=== PATIENT | female | born 1950 | race Caucasian/White ===

== ENCOUNTER 2018-02-13 14:44 | Inpatient (IN) | payer MEDICARE, OTHER ==
[2018-02-13] MEDS ORDERED: NS 0.9% 1000 ML* 1,000 ML IV ONE (14:56)
--- NOTE | 2018-02-13 15:02 | ED ---
Neurological HPI - HPI Summary HPI Summary: A 67 y/o F presents to ED by car with L-sided facial droop onset 1405 which was witnessed by her boyfriend. Last known well was approx 1300 when she went upstairs to take a nap. Associated sx: L-sided tingling and numbness on LUE and LLE, slurred speech. At bedside, boyfriend says her smile appears different. Pt notes having trouble with BP control. She was at baseline this AM. Pt is not on blood thinners and does not take daily aspirin. Pt has no prior hx of CVA. Past visits to [facility] [place] show melena, gastric ulcer. Daily medications include: Valsartan/ HCTZ 160/12.5; Simvastatin 40 mg; Synthroid 50 mcg. Cymbalta. Pt is R-hand dominant. PMHx incluides ulcer, diverticulitis, thyroid issue. ED provider at bedside at 1452. Dr. Shore, neuro, at bedside at 1503. He was made aware of jo quintanilla via phone while pt in CT. Pt taken immediately to CT and jo quintanilla called after initial assessment as pt brought into the room from triage. Vital signs while in room: HR 77 bpm, BP 170/76. Home Medications Medication Instructions Recorded Confirmed Type DULoxetine DR ARANA* [Cymbalta CAP*] 60 mg PO DAILY 02/13/18 02/13/18 History Ibandronate TAB(NF) [Boniva(NF)] 150 mg PO MONTHLY 02/13/18 02/13/18 History Levothyroxine TAB* [Synthroid TAB*] 50 mcg PO DAILY 02/13/18 02/13/18 History Pantoprazole TAB (NF) [Protonix 40 mg PO DAILY 02/13/18 02/13/18 History TAB (NF)] Ranitidine TAB (NF) [Zantac TAB 150 mg PO DAILY 02/13/18 02/13/18 History (NF)] Simvastatin TAB(NF) [Zocor(NF)] 40 mg PO DAILY 02/13/18 02/13/18 History Valsartan/HCTZ 160/12.5(NF) 1 tab PO DAILY 02/13/18 02/13/18 History [Diovan HCT 160/12.5 (NF)] Zolpidem TAB* [Ambien TAB*] 10 mg PO BEDTIME PRN 02/13/18 02/13/18 History - History of Current Complaint Chief Complaint: EDNeurologicalDeficit Stated Complaint: LT SIDE NUMBNESS Time Seen by Provider: 02/13/18 14:56 Hx Obtained From: Patient, Family/Extension Course Counselor Onset/Duration: Sudden Onset, Started hours ago - 1405, Still Present Timing: Constant Onset Severity: Mild Current Severity: Mild Number of Seizures: 0 Pain Intensity: 0 Pain Scale Used: 0-10 Numeric Character: Other: - L-sided facial droop Aggravating: Nothing Alleviating: Nothing Associated Signs and Symptoms: Positive: Impaired Speech - slurring, Numbness - and tingling to LUE and LLE TPA Considered: Yes - Allergy/Home Medications Allergies/Adverse Reactions: Allergies Allergy/AdvReac Type Severity Reaction Status Date / Time No Known Allergies Allergy Verified 06/24/14 13:20 Home Medications: Home Medications DULoxetine DR CAP* [Cymbalta CAP*] 60 mg PO DAILY 02/13/18 [History Confirmed ] Ibandronate TAB(NF) [Boniva(NF)] 150 mg PO MONTHLY 02/13/18 [History Confirmed 02/13/18] Levothyroxine TAB* [Synthroid TAB*] 50 mcg PO DAILY 02/13/18 [History Confirmed 02/13/18] Pantoprazole TAB (NF) [Protonix TAB (NF)] 40 mg PO DAILY 02/13/18 [History Confirmed 02/13/18] Ranitidine TAB (NF) [Zantac TAB (NF)] 150 mg PO DAILY 02/13/18 [History Confirmed 02/13/18] Valsartan/HCTZ 160/12.5(NF) [Diovan HCT 160/12.5 (NF)] 1 tab PO DAILY 02/13/18 [ History Confirmed 02/13/18] Zolpidem TAB* [Ambien*] 10 mg PO BEDTIME PRN 02/13/18 [History Confirmed ] PMH/Surg Hx/FS Hx/Imm Hx Previously Healthy: No Endocrine/Hematology History: Reports: Hx Thyroid Disease Denies: Hx Diabetes Cardiovascular History: Denies: Hx Hypertension GI History: Reports: Hx Diverticulosis, Hx Ulcer History: Denies: Hx Renal Disease Opthamlomology History: Denies: Hx Legally Blind EENT History: Denies: Hx Deafness - Surgical History Surgery Procedure, Year, and Place: Right Thyroidectomy Infectious Disease History: No Infectious Disease History: Denies: Traveled Outside the [place] in Last 30 Days - Family History Family History: father: ulcers - Social History Lives: With Family - boyfriend Alcohol Use: Weekly Hx Substance Use: No Substance Use Type: Reports: None Hx Tobacco Use: No Smoking Status (MU): Never Smoked Tobacco Review of Systems Negative: Fever Cardiovascular: Negative Respiratory: Negative Gastrointestinal: Negative Positive: no symptoms reported Skin: Negative Neurological: Other - pos: L-sided facial droop Positive: Numbness - and tingling L-sided, Slurred Speech Psychological: Normal All Other Systems Reviewed And Are Negative: Yes Physical Exam - Summary Physical Exam Summary: Appearance: Well-appearing, no pain distress, well-nourished Skin: Warm, color reflects adequate perfusion, dry Head: minor left facial droop, atraumatic Eyes: Conjunctiva clear ENT: Normal inspection Neck: Supple, no nodes, no JVD Respiratory: Lungs clear, normal breath sounds, no respiratory distress Cardio: RRR, No murmur, pulses normal, brisk capillary refill Abdomen: Soft, nontender Bowel sounds: Present Musculoskeletal: Strength Intact/ROM intact, no calf tenderness, no edema. Psychological: Normal Neuro: A&O x3, left upper lip with minor droop, minor dysarthria with difficulty speaking certain words, motor function 5/5, sensation intact, cerebellar normal, NIH: 3 Triage Information Reviewed: Yes Vital Signs On Initial Exam: Initial Vitals Temp Pulse Resp BP Pulse Ox 97.9 F 77 16 170/76 94 02/13/18 14:47 02/13/18 14:47 02/13/18 14:47 02/13/18 14:47 02/13/18 14:47 Vital Signs Reviewed: Yes - [place] Coma Scale Best Eye Response: 4 - Spontaneous Best Motor Response: 6 - Obeys Commands Best Verbal Response: 5 - Oriented Coma Scale Total: 15 Diagnostics - Vital Signs Vital Signs Temp Pulse Resp BP Pulse Ox 02/13/18 14:47 97.9 F 77 16 170/76 94 - Laboratory Result Diagrams: 02/16/18 04:57 02/15/18 05:32 Lab Statement: Any lab studies that have been ordered have been reviewed, and results considered in the medical decision making process. - Radiology CXR Radiology Interpretation Completed By: Radiologist Summary of Radiographic Findings: IMPRESSION: NO ACTIVE CARDIOPULMONARY DISEASE IS NOTED. ED provider has reviewed this report. - CT BRAIN CT Interpretation Completed By: Radiologist Summary of CT Findings: IMPRESSION: There is no intracranial mass or hemorrhage noted. Findings called to Dr. Son at 1509 hours. ED provider has reviewed this report. HEAD CTA CT Interpretation Completed By: Radiologist Summary of CT Findings: IMPRESSION: 1. NO EVIDENCE FOR HEMODYNAMICALLY SIGNIFICANT CAROTID STENOSIS. 2. NO EVIDENCE FOR LARGE VESSEL INTRACRANIAL THROMBUS. ED provider has reviewed this report. - EKG 1528 Cardiac Rate: NL - 73bpm EKG Rhythm: Sinus Rhythm ST Segment: Non-Specific Ectopy: None EKG Comparison: Other - No prior to compare. Summary of EKG Findings: An EKG at [address], nml QTc, and Left axis (-58), Q wave in III and aVF. NIH Scale - NIH Scale Level of Consciousness: Alert/Keenly Responsive Ask Patient the Month and His/Her Age: Both Correct Ask Pt to Open/Close Eyes and Trolley Cleaner/Release Non-Paretic Hand: Both Correctly Best Gaze (Only Horizontal Eye Movement): Normal Visual Field Testing: No Visual Loss Facial Paresis-Pt to Smile & Close Eyes or Grimace Symmetry: Minor Paralysis Motor Function - Right Arm: No Drift-Holds 10 Seconds Motor Function - Left Arm: No Drift-Holds 10 Seconds Motor Function - Right Leg: No Drift-Holds 10 Seconds Motor Function - Left Leg: No Drift-Holds 10 Seconds Limb Ataxia-Must be out of Proportion to Weakness Present: Absent Sensory (Use Pinprick to Test Arms/Legs/Trunk/Face): Pinprick Less on Affected Best Language (Describe Picture, Name Items): No Aphasia Dysarthria (Read Several Words): Slurs Some Words Extinction and Inattention: No Abnormality Total Score: 3 Re-Evaluation - Re-Evaluation First Eval Re-Evaluation Time: 15:14 Change: Unchanged Comment: Pt returns from head CT. Dr. Shore with pt and boyfriend. Decision for TPA. Pt without contraindications and consents. CTA head and neck ordered. BP 164/89. Pt in SR on monitor, HR 76. Course/Dx - Course Course Of Treatment: Pt is a 67 y/o F presenting with L-sided facial droop onset 1405 which was witnessed by her boyfriend. Last known normal was approx 1300 prior to the patient's nap. Associated sx: L-sided tingling and numbness on LUE and LLE, slurred speech. At bedside at 1452. Jo Quintanilla called at 1454. Dr. Shore, neuro, at bedside at 1503. TPA order in at 1514. No contraindications to TPA (gastric ulcer and GI bleed was 2014) and pt consents. Bloodwork appears unremarkable. Brain CT is negative. BP is controlled without medication. CTA ordered. Dr. Salcido, ICU, admits pt to ICU after TPA treatment. - Differential Dx Differential Diagnoses Neuro: Positive: Cerebrovascular Accident, Intracranial Bleed, Transient Ischemic Attack - Diagnoses Provider Diagnoses: Stroke During the Visit The Following Alert/Code Occurred: Jo Matos - Called at 14:54. - Physician Notifications Discussed Care Of Patient With: Annamarie Burrell - radiology Time Discussed With Above Provider: 15:08 Instructed by Provider To: Other - Brain CT is negative. - Critical Care Time Critical Care Time: 30-74 min - 40 minutes Discharge - Sign-Out/Discharge Documenting (check all that apply): Patient Departure - ICU - Discharge Plan Condition: Stable Disposition: ADMITTED TO [facility] - Billing Disposition and Condition Condition: STABLE Disposition: Admitted to [facility] - Attestation Statements Document Initiated by Scribe: Yes Documenting Scribe: Hang Gates Provider For Whom Scribe is Documenting (Include Credential): Dr. Sadaf Son MD Scribe Attestation: Hang Almanzar, scribed for Dr. Sadaf Son MD on 02/18/18 at 2207. Scribe Documentation Reviewed: Yes Provider Attestation: The documentation as recorded by the Hang torres accurately reflects the service I personally performed and the decisions made by me, Dr. Sadaf Son MD Consult Consult: Dr. Shore, neurology, present in ED during jo quintanilla, as pt in initial CT brain. 1329: Dr. Salcido, ICU Aware of pt, accepts pt to ICU for post-TPA protocol.
[2018-02-13] MEDS ORDERED: Alteplase* 100 MG VIAL IV ONE ×2 (15:14)
[2018-02-13] MEDS ORDERED: Alteplase* 100 MG VIAL ONE (15:14)
[2018-02-13 15:16] LABS: ABS Basophils 0 10^3/ul (0-0.2); ABS Eosinophils 0.2 10^3/ul (0-0.6); ABS Lymphocytes 1.4 10^3/ul (1.0-4.8); ABS Monocytes 0.6 10^3/ul (0-0.8); ABS Neutrophils 2.9 10^3/ul (1.5-7.7); ABS Nucleated RBC 0 10^3/ul; Eosinophil % 3.5 % (0-6); Hematocrit 41 % (35-47); Hemoglobin 13.6 g/dl (12.0-16.0); Mean Corpuscular HGB Conc 34 g/dl (31-36); Mean Corpuscular Hemoglobin 30 pg (27-31); Mean Corpuscular Volume 91 fL (80-97); Mean Platelet Volume 7.2 fL (7.4-10.4); Nucleated Red Blood Cells % 0.1; Platelet Count 289 10^3/ul (150-450); Red Blood Count 4.46 10^6/ul (4.00-5.40); Red Cell Distribution Width 14 % (10.5-15); White Blood Count 5.2 10^3/ul (3.5-10.8)
[2018-02-13 15:34] LABS: EGFR Non-African American 55.6 (>60)
[2018-02-13] MEDS ORDERED: Iodixanol* (CONTRAST) 320 MG/ML 100 ML SDV IV ONE (15:38)
[2018-02-13 15:53] LABS: INR 0.86 (0.77-1.02)
[2018-02-13] MEDS ORDERED: Atorvastatin* 80 MG TAB PO ONE (16:43)
--- NOTE | 2018-02-13 16:52 | HP ---
H&P (Free Text) History and Physical: History and Physical -- Critical Care HPI: 67y F with pmhx of Gastric ulcers and GIB 2014 (EGD 07/2014 with duodenal diverticula,diverticulosis, small hiatal hernia), HTN, Osteoarthritis, hypothyroidism (history of partial thyroidectomy), mild asthma, depression from previous loss of ; comes to ER with complaints of left facial numbness. She went to take a nap at ~1pm today. Woke at ~205 and went downstairs, complaints of left facial and left arm/leg numbness/tingling, noticeable slurred speech to herself, and some left lid droop. She had no headache/n/v/cp/ sob/dizziness/syncope/blurred vision/visual loss. Noted history of uncontrolled/ elevated BPs at home >200 for weeks, despite medications. In ER, BP 170s, HR sinus rhythm. EKG NSR. Stroke code, CT brain without hemorrhage. Initial NIH 3. Neurology called. Decision to tpa, given at ~315pm. Current in bed, no numbness in face/leg/arm on left. Minimal dysarthria noted, mild left lower facial droop noted. Boyfriend at bedside and notices mild now, more before. Tele with NSR. ROS: negative except for pertinent positives mentioned above. PMHx: Gastric ulcers and GIB 2014 (EGD 07/2014 with duodenal diverticula, diverticulosis, small hiatal hernia), HTN, Osteoarthritis, hypothyroidism ( history of partial thyroidectomy), mild asthma, depression from previous loss of PSHx: partial thyroidectomy, D&C Family History: Father gastric ulcers Social History: Alcohol-weekly, Smoking-none, Drug use-none Allergies: Allergies Allergy/AdvReac Type Severity Reaction Status Date / Time No Known Allergies Allergy Verified 06/24/14 13:20 Home Medications: DULoxetine DR CAP* [Cymbalta CAP*] 60 mg PO DAILY 02/13/18 [History Confirmed ] Ibandronate TAB(NF) [Boniva(NF)] 150 mg PO MONTHLY 02/13/18 [History Confirmed 02/13/18] Levothyroxine TAB* [Synthroid TAB*] 50 mcg PO DAILY 02/13/18 [History Confirmed 02/13/18] Pantoprazole TAB (NF) [Protonix TAB (NF)] 40 mg PO DAILY 02/13/18 [History Confirmed 02/13/18] Ranitidine TAB (NF) [Zantac TAB (NF)] 150 mg PO DAILY 02/13/18 [History Confirmed 02/13/18] Simvastatin TAB(NF) [Zocor(NF)] 40 mg PO DAILY 02/13/18 [History Confirmed 02/13] Valsartan/HCTZ 160/12.5(NF) [Diovan HCT 160/12.5 (NF)] 1 tab PO DAILY 02/13/18 [ History Confirmed 02/13/18] Zolpidem TAB* [Ambien TAB*] 10 mg PO BEDTIME PRN 02/13/18 [History Confirmed 10/24] Tele: NSR Vitals: Vital Signs Temp 97.9 F 02/13/18 14:47 Pulse 77 02/13/18 14:47 Resp 16 02/13/18 14:47 BP 170/76 02/13/18 14:47 Pulse Ox 94 02/13/18 14:47 Intake & Output 02/12/18 02/13/18 02/13/18 18:59 06:59 18:59 Weight 92.986 kg O2/Vent: RA Infusions: heplock Current Medications: Atorvastatin Calcium (Lipitor*) 80 mg PO DAILY [facility] Duloxetine HCl (Cymbalta Cap*) 60 mg PO DAILY [facility] Levothyroxine Sodium (Synthroid Tab*) 50 mcg PO DAILY [facility] Omeprazole (Prilosec Cap*) 20 mg PO DAILY@0600 [facility] Physical Exam: General: awake, alert, no distress, no diaphoresis Head: normocephalic, atraumatic HEENT: no pallor, no icterus, moist mucous membranes Neck: soft, supple, no jvd, no stridor CVS: normal rate, regular, no murmur Resp: bilateral air entry, no rhales, no wheeze, no rhonchi, no acc muscle use Abdomen: soft, nontender, nondistended, bowel sounds present Ext: pulses+, warm, no edema Skin: intact Neuro: awake, alert, orientedx3, trace amount of dysarthria+, mild left facial droop+, 5/5 strength all extremities, no drift noted, no nystagmust Labs: Laboratory Results - last 24 hr 02/13/18 02/13/18 02/13/18 14:58 14:58 14:58 WBC 5.2 RBC 4.46 Hgb 13.6 Hct 41 MCV 91 MCH 30 MCHC 34 RDW 14 Plt Count 289 MPV 7.2 L Neut % (Auto) 56.7 Lymph % (Auto) 28.0 Lee % (Auto) 10.9 H Eos % (Auto) 3.5 Baso % (Auto) 0.9 Absolute Neuts (auto) 2.9 Absolute Lymphs (auto) 1.4 Absolute Monos (auto) 0.6 Absolute Eos (auto) 0.2 Absolute Basos (auto) 0 Absolute Nucleated RBC 0 Nucleated RBC % 0.1 INR (Anticoag Therapy) 0.86 APTT 29.5 Sodium 142 Potassium 3.9 Chloride 108 Carbon Dioxide 28 Anion Gap 6 BUN 15 Creatinine 0.99 H Est GFR ( Amer) 67.3 Est GFR (Non-Af Amer) 55.6 BUN/Creatinine Ratio 15.2 Glucose 89 Lactic Acid Calcium 9.4 Total Bilirubin 0.30 AST 17 ALT 18 Alkaline Phosphatase 72 Troponin I 0.00 Total Protein 7.0 Albumin 4.1 Globulin 2.9 Albumin/Globulin Ratio 1.4 Triglycerides 257 Cholesterol 216 LDL Cholesterol 111 HDL Cholesterol 54.0 Blood Type Antibody Screen 02/13/18 02/13/18 14:58 14:58 WBC RBC Hgb Hct MCV MCH MCHC RDW Plt Count MPV Neut % (Auto) Lymph % (Auto) Lee % (Auto) Eos % (Auto) Baso % (Auto) Absolute Neuts (auto) Absolute Lymphs (auto) Absolute Monos (auto) Absolute Eos (auto) Absolute Basos (auto) Absolute Nucleated RBC Nucleated RBC % INR (Anticoag Therapy) APTT Sodium Potassium Chloride Carbon Dioxide Anion Gap BUN Creatinine Est GFR ( Amer) Est GFR (Non-Af Amer) BUN/Creatinine Ratio Glucose Lactic Acid 1.0 Calcium Total Bilirubin AST ALT Alkaline Phosphatase Troponin I Total Protein Albumin Globulin Albumin/Globulin Ratio Triglycerides Cholesterol LDL Cholesterol HDL Cholesterol Blood Type O Negative Antibody Screen Negative Imaging: CT brain 02/13 - no acute process cta head 02/13 - no sig obstruction/stenosis; mild atheroma in ICA Assessment: 67y F with pmhx of Gastric ulcers and GIB 2014 (EGD 07/2014 with duodenal diverticula,diverticulosis, small hiatal hernia), HTN, Osteoarthritis, hypothyroidism (history of partial thyroidectomy), mild asthma, depression from previous loss of ; comes to ER with complaints of left facial numbness. She went to take a nap at ~1pm today. Woke at ~205 and went downstairs, complaints of left facial and left arm/leg numbness/tingling, noticeable slurred speech to herself, and some left lid droop. In ER, hyptertensive 170s, NSR. CT brain negative for acute pathology. Decision for tpa, given at 315pm. Noted history of uncontrolled/elevated BPs at home >200 for weeks, despite medications. -CVA with left facial/arm/leg tingling and droop/dysarthria; s/p tpa 02/13 -Hypertension hypothyroidism Depression Plan: Neuro- s/p CVA, s/p tpa 315. neurochecks as per protcol. as prec. fall prec. no blood draws. if any change, repeat CT brain. MRI brain in AM. no sig atherosclerotic disease on CTA head. Maintain permissive hypertensive, keep SBP> 180, cardene PRN. Neurologoy consult. Statin PO. no asa yet. CVS- Hypertensive, some uncontrolled htn at home for some time. allow permissive today. no asa. s/p tpa, monitor for bleeding. Cardene PRN, maintain SBP<180. no anticoagulants. Resp- RA, no distress. cont symbicort for history of asthma. ID- afebrile. wbc normal. no abx indicated. GI- liquid diet for now; if any change in neurostatus, make NPO. cont PPI for history of GERD. no further bleeding since 2014, hg normal, no ulcers at that time. Renal- Cr okay. K okay, no acidosis. no veras Heme- hg stable, plt okay. s/p tpa for CVA. monitor for bleeding/neuro change. Endo- check hba1c, tsh; cont synthroid 50mcg daily. Musculsk- pressure ulcer prophylaxis. Bedrest. Wounds- none Nutrition- liquid diet only. DVT prophylaxis: SCDs GI prophylaxis: PPI Central Line: no Arterial Line: no Veras Cathetor: no Disposition: admit to ICU; expected LOS >2 midnights Code Status: full code Total Critical Care time is 30 minutes, excluding procedures/teaching Korey Salcido MD [employer] (Electronically Signed)
[2018-02-13] MEDS: Mometasone/Formoter 200/5 MDI INH SCH (19:34)
--- NOTE | 2018-02-13 23:01 | CONS ---
CONSULTATION REPORT: DATE OF CONSULT: 02/13/18 PATIENT OF: Dr. Son. No identifiable care provider. She has one, but did not remember the name acutely. HISTORY OF PRESENT ILLNESS: She had gone upstairs at about 1:30 this afternoon to rest, had not fallen asleep and was awake the whole time. At about 2 to 2:15 , she had onset of left facial numbness that went into the arm and then into her leg, arm, and she got her boyfriend who brought her to the ER. She was noted to have a little bit of left facial weakness and both she and the boyfriend have noticed that and there has been some slight slurred speech. There is no weakness in the arm. PAST MEDICAL HISTORY: She has hypertension, hyperlipidemia, hypothyroidism, depression. She has had a past history of ulcer and thyroid biopsy, but nothing in the past few weeks and the ulcer was 3 years ago. She has had no prior stroke. She has had a history of diverticulitis. She has had right thyroidectomy as her only surgery. MEDICATIONS: Includes: 1. Cymbalta 60 mg daily. 2. Boniva 150 monthly. 3. Synthroid 50 mcg daily. 4. Protonix 40 mg daily. 5. Zantac 150 daily. 6. Zocor 40 mg daily. 7. Losartan 1 tab daily. 8. Ambien 10 mg at bedtime. FAMILY HISTORY: Noncontributory. SOCIAL HISTORY: She does not smoke, drink, or use drugs. PHYSICAL EXAM: Temperature 97.9, pulse 77, respirations 16, blood pressure 170/ 76. She is alert and oriented with normal speech and comprehension to my ear. There was a slight slurring that she and her noticed which was within normal range to my ear, but this clearly is a difference. She had a small left facial droop as well. Rest of cranial nerves were intact. Fundi were benign. Motor exam revealed normal tone, strength and [id number]. She had no pronator drift. No leg drift. Sensation was decreased in her left face and arm , but not in her leg or trunk at this time. Reflexes were 1 and equal. Toes were downgoing. Chest clear. Cardiovascular: Regular rate and rhythm. Abdomen is soft with positive bowel sounds. She had an NIH stroke scale of 3 for dysarthria, left facial droop, and left-sided numbness. DIAGNOSTIC STUDIES/LAB DATA: She had a negative CT scan. Her labs showed a normal CBC, INR, PTT, CMP. LDL was 111. Triglycerides 257. IMPRESSION: I discussed with her that she most likely was having a small stroke with some left-sided numbness, some minor dysarthria and left facial droop. It is unclear whether this was small vessel, but could well be a large vessel. It is unlikely to be a large vessel, but we are getting a CTA to make sure if this does not show any large vessel occlusion, she will be admitted to the ICU and after 24 hours, we will get an MRI scan for fu of tpa administration. I discussed with her and family the complications of tpa administration including bleeding Wethen begin on presumably antiplatelet agents unless we find anything on her echo or she shows signs of arrhythmia. I discussed this with her in detail. Discussed again plan with Dr. Salcido and with Dr. Son. Thank you for sharing her case. [id number]/[facility] #: [id number]
[2018-02-13] MEDS ORDERED: Acetaminophen TAB* 325 MG PO STA (23:32)
[2018-02-14 00:58] LABS: Urine Red Blood Cell Trace(0-2/hpf) (Absent); Urine White Blood Cell Absent (Absent)
[2018-02-14 01:00] LABS: Urine Appearance Clear; Urine Blood Negative (Negative); Urine Color Straw; Urine Ketones Negative (Negative); Urine Protein Negative (Negative); Urine Specific Gravity 1.019 (1.010-1.030); Urine Urobilinogen Negative (Negative)
[2018-02-14] MEDS: Omeprazole CAP* 20 MG PO SCH (05:45)
[2018-02-14] MEDS: Levothyroxine TAB* 50 MCG TAB PO SCH (05:45)
[2018-02-14 07:34] LABS: Hematocrit 38 % (35-47); Hemoglobin 12.7 g/dl (12.0-16.0); Mean Corpuscular HGB Conc 33 g/dl (31-36); Mean Corpuscular Hemoglobin 30 pg (27-31); Mean Corpuscular Volume 91 fL (80-97); Mean Platelet Volume 7.5 fL (7.4-10.4); Platelet Count 255 10^3/ul (150-450); Red Blood Count 4.18 10^6/ul (4.00-5.40); Red Cell Distribution Width 14 % (10.5-15); White Blood Count 5.2 10^3/ul (3.5-10.8)
[2018-02-14] MEDS ORDERED: Perflutren Lipid Microsphere* 3 ML VIAL ONE (08:08)
[2018-02-14] MEDS: Atorvastatin* 80 MG TAB PO SCH (08:27)
[2018-02-14] MEDS: DULoxetine DR CAP* 60 MG CAP.DR PO SCH (08:27)
[2018-02-14] MEDS ORDERED: Potassium Chlor TAB* 20 MEQ TAB.ER PO ONE (08:37)
--- NOTE | 2018-02-14 08:59 | ECHO ---
Patient: ZAKI QUINTERO [facility] Rec#: [id number] : 1950 Date: 02/14/2018 Age: 67y Height: 160 cm / 63.0 in Weight: 93 kg / 205.0 lbs Sex: F BSA: 1.95 Room#: ICU 6 Admit Date#: 02/13/2018 Type: Inpatient Referring: Korey Salcido Reading: Huy Vincent MD Release Of Information Clerk: Arminda Wu RDCS,RDMS Transthoracic Echocardiogram Indication: CVA BP: 169/80 HR: 63 Rhythm: NSR Findings History: HTN, asthma Technical Comments: The study quality is fair. Left Ventricle: The left ventricular chamber size is normal. Global left ventricular wall motion and contractility are within normal limits. There is normal left ventricular systolic function. The estimated ejection fraction is 55-60%. There is an E to A reversal in the mitral valve flow pattern suggestive of diastolic dysfunction. Left Atrium: The left atrial chamber size is normal. Right Ventricle: The right ventricular chamber size and systolic function are within normal limits. Right Atrium: The right atrial cavity size is normal. Aortic Valve: The aortic valve is trileaflet. The aortic valve leaflets are mildly thickened. Systolic excursion of the aortic valve is normal. There is aortic annular calcification. There is mild aortic regurgitation. There is no evidence of aortic stenosis. Mitral Valve: The mitral valve leaflets appear normal. There is no evidence of mitral regurgitation. Tricuspid Valve: The tricuspid valve leaflets are normal. There is no evidence of tricuspid valve regurgitation. Unable to estimate the right ventricular systolic pressure. Pulmonic Valve: The pulmonic valve appears normal. There is trace to mild pulmonic regurgitation. There is no pulmonic stenosis. Pericardium: There is no significant pericardial effusion. Aorta: The aortic root appears normal. Pulmonary Artery: The main pulmonary artery appears normal. Venous: The inferior vena cava appears normal in size. There is an approximate 50% respiratory change in the inferior vena cava dimension. Contrast: Definity was used to optimize study. A total of 2 ml was used. Conclusions There is normal left ventricular systolic function. The estimated ejection fraction is 55-60%. Global left ventricular wall motion and contractility are within normal limits. There is an E to A reversal in the mitral valve flow pattern suggestive of diastolic dysfunction. Normal cardiac chamber sizes. There is mild aortic regurgitation. There is no prior echocardiogram available to compare with at this time. Measurements Name Value Normal Range RVIDd (AP) 2D 2.8 cm (0.9 - 2.6) RVDdMajor (2D) 3.7 cm (2.2 - 4.4) RAd ISD 4CH 4.7 cm (3.4 - 4.9) RA (A4C)W 4.2 cm (2.9 - 4.6) IVSd (2D) 1.1 cm (0.6 - 1) LVPWd (2D) 1.2 cm (0.6 - 1) LVIDd (2D) 4.7 cm (3.6 - 5.4) LVIDs (2D) 3.3 cm - LV FS (2D) 29 % (25 - 45) Aortic Annulus 2.4 cm (1.4 - 2.6) Ao root diameter (2D) 2.8 cm (2.1 - 3.5) Ascending Ao 3.2 cm (2.1 - 3.4) Aortic arch 3.1 cm (1.8 - 3.4) LA dimension (AP) 2D 4.1 cm (2.3 - 3.8) LAd ISD 4CH 5.3 cm (2.9 - 5.3) LA ISD 4CH W 4.4 cm (2.5 - 4.5) Name Value Normal Range LA ESV BP (A/L) index 28 ml/m2 - Name Value Normal Range MV E-wave Vmax 0.7 m/sec - MV deceleration time 206 msec - MV A-wave Vmax 1 m/sec - MV E:A ratio 0.7 ratio - LV septal e' Vmax 0.07 m/sec - LV lateral e' Vmax 0.09 m/sec - LV E:e' septal ratio 10 ratio - LV E:e' lateral ratio 7.5 ratio - Name Value Normal Range AV Vmax 1.8 m/sec - AV VTI 41.5 cm - AV peak gradient 13 mmHg - AV mean gradient 7 mmHg - LVOT Vmax 1.4 m/sec - LVOT VTI 31 cm - LVOT peak gradient 8 mmHg - LVOT mean gradient 4 mmHg - CECILIO Vmax 0.8 m/sec - Name Value Normal Range RAP 8 mmHg - IVC diameter 1.7 cm - Name Value Normal Range PV Vmax 0.8 m/sec - PV peak gradient 2.6 mmHg -
[2018-02-14] MEDS ORDERED: hydrALAZINE IV* 20 MG/ML VIAL ONE (11:20)
[2018-02-14] MEDS: hydrALAZINE IV* 20 MG/ML VIAL IV SLOW PU PRN ×2 (11:21→16:27)
[2018-02-14] MEDS ORDERED: Valsartan TAB* 160 MG PO SCH (13:00)
--- NOTE | 2018-02-14 14:54 | PN ---
Progress Note - Progress Note Date of Service: 02/14/18 Note: History and Physical -- Critical Care 24 hour events: -has left facial tingling/numbness; no ext numbness/weakness. no dysarthria. tolering po liquids -BP 150-160s overnight -no arrythmias on tele noted -this morning 180s; given hydralazine; start po lisinopril again -for MRI brain later today Tele: NSR Vitals: Vital Signs Temp 97.5 F 02/14/18 11:58 Pulse 73 02/14/18 13:00 Resp 17 02/14/18 13:00 BP 177/67 02/14/18 13:00 Pulse Ox 94 02/14/18 13:00 Intake & Output 02/13/18 02/14/18 02/14/18 18:59 06:59 18:59 Intake Total 83.7 480 1070 Output Total 1250 1300 Balance 83.7 -770 -230 Weight 93 kg 93.3 kg Intake: IV Fluids 83.7 Oral 0 480 1070 Output: Urine 1250 1300 O2/Vent: RA Infusions: heplock Current Medications: Atorvastatin Calcium (Lipitor*) 80 mg PO DAILY [facility] Last Admin: 02/14/18 08:27 Dose: 80 mg Duloxetine HCl (Cymbalta Cap*) 60 mg PO DAILY [facility] Last Admin: 02/14/18 08:27 Dose: 60 mg Hydralazine HCl (Apresoline Iv*) 5 mg IV SLOW PU Q6H PRN PRN Reason: sbp>180 Last Admin: 02/14/18 11:21 Dose: 5 mg Levothyroxine Sodium (Synthroid Tab*) 50 mcg PO 0600 [facility] Last Admin: 02/14/18 05:45 Dose: 50 mcg Mometasone Furoate/Formoterol Fumar (Dulera 200/5 Mdi*) 2 puff INH BID [facility]; Protocol Last Admin: 02/13/18 19:34 Dose: 2 puff Omeprazole (Prilosec Cap*) 20 mg PO DAILY@0600 [facility] Last Admin: 02/14/18 05:45 Dose: 20 mg Valsartan (Diovan Tab*) 160 mg PO DAILY [facility] Last Admin: 02/14/18 13:35 Dose: 160 mg Physical Exam: General: awake, alert, no distress, no diaphoresis Head: normocephalic, atraumatic HEENT: no pallor, no icterus, moist mucous membranes Neck: soft, supple, no jvd, no stridor CVS: normal rate, regular, no murmur Resp: bilateral air entry, no rhales, no wheeze, no rhonchi, no acc muscle use Abdomen: soft, nontender, nondistended, bowel sounds present Ext: pulses+, warm, no edema Skin: intact Neuro: awake, alert, orientedx3, no dysarthria, no/minimal facial droop, 5/5 strength all ext, no numbness appreciated. Labs: Laboratory Results - last 24 hr 02/13/18 02/13/18 02/13/18 14:58 14:58 14:58 WBC 5.2 RBC 4.46 Hgb 13.6 Hct 41 MCV 91 MCH 30 MCHC 34 RDW 14 Plt Count 289 MPV 7.2 L Neut % (Auto) 56.7 Lymph % (Auto) 28.0 [place] % (Auto) 10.9 H Eos % (Auto) 3.5 Baso % (Auto) 0.9 Absolute Neuts (auto) 2.9 Absolute Lymphs (auto) 1.4 Absolute Monos (auto) 0.6 Absolute Eos (auto) 0.2 Absolute Basos (auto) 0 Absolute Nucleated RBC 0 Nucleated RBC % 0.1 INR (Anticoag Therapy) 0.86 APTT 29.5 Sodium 142 Potassium 3.9 Chloride 108 Carbon Dioxide 28 Anion Gap 6 BUN 15 Creatinine 0.99 H Est GFR ( Amer) 67.3 Est GFR (Non-Af Amer) 55.6 BUN/Creatinine Ratio 15.2 Glucose 89 Lactic Acid Calcium 9.4 Total Bilirubin 0.30 AST 17 ALT 18 Alkaline Phosphatase 72 Troponin I 0.00 Total Protein 7.0 Albumin 4.1 Globulin 2.9 Albumin/Globulin Ratio 1.4 Triglycerides 257 Cholesterol 216 LDL Cholesterol 111 HDL Cholesterol 54.0 Urine Color Urine Appearance Urine pH Ur Specific Percival Urine Protein Urine Ketones Urine Blood Urine Nitrate Urine Bilirubin Urine Urobilinogen Ur Leukocyte Esterase Urine WBC (Auto) Urine RBC (Auto) Ur Squamous Epith Cells Urine Bacteria Urine Glucose Urine Ascorbic Acid Blood Type Antibody Screen 02/13/18 02/13/18 02/14/18 14:58 14:58 00:05 WBC RBC Hgb Hct MCV MCH MCHC RDW Plt Count MPV Neut % (Auto) Lymph % (Auto) [place] % (Auto) Eos % (Auto) Baso % (Auto) Absolute Neuts (auto) Absolute Lymphs (auto) Absolute Monos (auto) Absolute Eos (auto) Absolute Basos (auto) Absolute Nucleated RBC Nucleated RBC % INR (Anticoag Therapy) APTT Sodium Potassium Chloride Carbon Dioxide Anion Gap BUN Creatinine Est GFR ( Amer) Est GFR (Non-Af Amer) BUN/Creatinine Ratio Glucose Lactic Acid 1.0 Calcium Total Bilirubin AST ALT Alkaline Phosphatase Troponin I Total Protein Albumin Globulin Albumin/Globulin Ratio Triglycerides Cholesterol LDL Cholesterol HDL Cholesterol Urine Color Straw Urine Appearance Clear Urine pH 6.0 Ur Specific Percival 1.019 Urine Protein Negative Urine Ketones Negative Urine Blood Negative Urine Nitrate Negative Urine Bilirubin Negative Urine Urobilinogen Negative Ur Leukocyte Esterase Negative Urine WBC (Auto) Absent Urine RBC (Auto) Trace(0-2/hpf) Ur Squamous Epith Cells Present A Urine Bacteria Absent Urine Glucose Negative Urine Ascorbic Acid Not Reportable Blood Type O Negative Antibody Screen Negative 02/14/18 02/14/18 05:49 05:49 WBC 5.2 RBC 4.18 Hgb 12.7 Hct 38 MCV 91 MCH 30 MCHC 33 RDW 14 Plt Count 255 MPV 7.5 Neut % (Auto) Lymph % (Auto) [place] % (Auto) Eos % (Auto) Baso % (Auto) Absolute Neuts (auto) Absolute Lymphs (auto) Absolute Monos (auto) Absolute Eos (auto) Absolute Basos (auto) Absolute Nucleated RBC Nucleated RBC % INR (Anticoag Therapy) APTT Sodium 142 Potassium 3.7 Chloride 109 Carbon Dioxide 28 Anion Gap 5 BUN 12 Creatinine 0.73 Est GFR ( Amer) 95.6 Est GFR (Non-Af Amer) 79.0 BUN/Creatinine Ratio 16.4 Glucose 89 Lactic Acid Calcium 8.6 Total Bilirubin AST ALT Alkaline Phosphatase Troponin I Total Protein Albumin Globulin Albumin/Globulin Ratio Triglycerides Cholesterol LDL Cholesterol HDL Cholesterol Urine Color Urine Appearance Urine pH Ur Specific Percival Urine Protein Urine Ketones Urine Blood Urine Nitrate Urine Bilirubin Urine Urobilinogen Ur Leukocyte Esterase Urine WBC (Auto) Urine RBC (Auto) Ur Squamous Epith Cells Urine Bacteria Urine Glucose Urine Ascorbic Acid Blood Type Antibody Screen Imaging: CT brain 02/13 - no acute process cta head 02/13 - no sig obstruction/stenosis; mild atheroma in ICA Assessment: 67y F with pmhx of Gastric ulcers and GIB 2014 (EGD 07/2014 with duodenal diverticula,diverticulosis, small hiatal hernia), HTN, Osteoarthritis, hypothyroidism (history of partial thyroidectomy), mild asthma, depression from previous loss of ; comes to ER with complaints of left facial numbness. She went to take a nap at ~1pm today. Woke at ~205 and went downstairs, complaints of left facial and left arm/leg numbness/tingling, noticeable slurred speech to herself, and some left lid droop. In ER, hyptertensive 170s, NSR. CT brain negative for acute pathology. Decision for tpa, given at 315pm. Noted history of uncontrolled/elevated BPs at home >200 for weeks, despite medications. -CVA with left facial/arm/leg tingling and droop/dysarthria; s/p tpa 02/13 -Hypertension hypothyroidism Depression Plan: Neuro- s/p CVA, s/p tpa 315pm 02/13. neurochecks as per protcol. asp prec. fall prec. no neurological progression. minimal symptoms only of facial numbness on left. for MRI brain today. Blood pressure control, hydralazine, restart valsartan po. Neurologoy consult. Statin PO. no asa yet. CVS- Hypertensive, some uncontrolled htn at home. hydralazine prn IV for sbp> 180. restarted lisinopril. no asa yet. maintain SBP<180. no anticoagulants. TTE with preserved LV function, no thrombus/valve abn noted. Resp- RA, no distress. cont symbicort for history of asthma. ID- afebrile. wbc normal. no abx indicated. GI- liquid diet for now; cont PPI for history of GERD Renal- Cr okay. K okay, no acidosis. no veras Heme- hg stable, plt okay. s/p tpa for CVA. monitor for bleeding/neuro change. Endo- check hba1c, tsh; cont synthroid 50mcg daily. Musculsk- pressure ulcer prophylaxis. Bedrest. Wounds- none Nutrition- liquid diet only. DVT prophylaxis: SCDs GI prophylaxis: PPI Central Line: no Arterial Line: no Veras Cathetor: no Disposition: ICU Code Status: full code Korey Salcido MD [employer] (Electronically Signed)
[2018-02-14] MEDS ORDERED: Ondansetron INJ* 2 MG/ML VIAL ONE (16:47)
[2018-02-14] MEDS: Ondansetron INJ* 2 MG/ML VIAL IV PRN ×2 (16:50→20:38)
[2018-02-14] MEDS ORDERED: Valsartan TAB* 160 MG PO ONE (17:01)
[2018-02-14] MEDS ORDERED: Aspirin EC TAB* 81 MG TAB.EC PO ONE (17:07)
[2018-02-14] MEDS: Mometasone/Formoter 200/5 MDI INH SCH ×2 (18:09→19:59)
[2018-02-14] MEDS: Acetaminophen TAB* 325 MG PO PRN (18:45)
--- NOTE | 2018-02-14 19:07 | PN ---
NEUROLOGICAL FOLLOW UP NOTE: DATE OF FOLLOWUP: 02/14/18 PATIENT OF: Dr. Salcido. HISTORY: This is a 67-year-old woman, status post stroke yesterday. Her symptoms have cleared in terms of her slurred speech, her numbness in arm and leg. She has slight numbness in her face still. Her face had been droopy and she does not see it now. There is still a slight droop to the face. She has no other complaints. No headache, visual symptoms. She received her t- PA yesterday without complication. She is on her statin, Lipitor, Cymbalta, Synthroid, Dulera p.r.n., Diovan as needed, and is on Apresoline for systolic greater 180. REVIEW OF SYSTEMS: Negative other than the HPI. PHYSICAL EXAMINATION: She is afebrile. Pulse 78, respirations 22, blood pressure 182/84. She is alert and oriented with normal speech and comprehension. Cranial nerves II through XII intact there remains a slight facial asymmetry. There is decreased sensation to her face and her left cheek to a minimal extent, not in her arm or leg. Strength is 5/5 without pronator drift. Chest: Clear. Cardiovascular: Regular rate and rhythm. Abdomen: Soft with positive bowel sounds. DIAGNOSTIC STUDIES/LAB DATA: Her CTA was normal. Her echo showed no source of clot. Her labs include normal CBC, INR, PTT. CMP was normal, but for a LDL of 111 and Lipitor has been increased. She will be getting an MRI scan later today and then begin on antiplatelet therapy. I would make it both aspirin and Plavix for 3 month's time and then just go to the aspirin a day. It seems most likely this was relatively a small vessel stroke, perhaps secondary to her hypertension and her relative hyperlipidemia. [id number]/[facility] #: [id number] [facility]
[2018-02-14] MEDS: Metoprolol Tartrate TAB* 25 MG PO SCH (20:08)
[2018-02-14] MEDS ORDERED: Metoclopramide IV* 5 MG/ML 2 ML VIAL IV ONE (22:45)
[2018-02-15] MEDS: Ondansetron INJ* 2 MG/ML VIAL IV PRN ×2 (04:36→09:08)
[2018-02-15] MEDS: Omeprazole CAP* 20 MG PO SCH (05:12)
[2018-02-15] MEDS: Levothyroxine TAB* 50 MCG TAB PO SCH (05:12)
[2018-02-15 05:52] LABS: Hematocrit 42 % (35-47); Hemoglobin 13.9 g/dl (12.0-16.0); Mean Corpuscular HGB Conc 33 g/dl (31-36); Mean Corpuscular Hemoglobin 30 pg (27-31); Mean Corpuscular Volume 90 fL (80-97); Mean Platelet Volume 7.3 fL (7.4-10.4); Platelet Count 290 10^3/ul (150-450); Red Blood Count 4.62 10^6/ul (4.00-5.40); Red Cell Distribution Width 14 % (10.5-15); White Blood Count 7.2 10^3/ul (3.5-10.8)
[2018-02-15 06:20] LABS: EGFR Non-African American 88.8 (>60)
[2018-02-15] MEDS: Atorvastatin* 80 MG TAB PO SCH (09:08)
[2018-02-15] MEDS: Metoprolol Tartrate TAB* 25 MG PO SCH ×2 (09:08→19:55)
[2018-02-15] MEDS: Valsartan TAB* 160 MG PO SCH (09:08)
[2018-02-15] MEDS: Aspirin EC TAB* 81 MG TAB.EC PO SCH (09:09)
[2018-02-15] MEDS: Mometasone/Formoter 200/5 MDI INH SCH ×2 (09:09→19:21)
[2018-02-15] MEDS: Acetaminophen TAB* 325 MG PO PRN ×2 (09:15→15:13)
[2018-02-15] MEDS: DULoxetine DR CAP* 60 MG CAP.DR PO SCH (10:41)
[2018-02-15] MEDS: Clopidogrel TAB* 75 MG PO SCH (15:13)
--- NOTE | 2018-02-15 15:17 | PN ---
Subjective Date of Service: 02/15/18 Interval History: Patient seen she express headache, not new. no changes in sensations or any new deficit. She tolerated her aspirin yesterday. H/H stable. I will implement the plavix today. follow up h/H in am as well to ensure stability and if remain stable will D/c in am Past Medical History: Unchanged from Admission Objective Active Medications: Acetaminophen (Tylenol Tab*) 650 mg PO Q4H PRN PRN Reason: HEADACHE Last Admin: 02/15/18 09:15 Dose: 650 mg Aspirin (Aspirin Ec Tab*) 81 mg PO DAILY [facility] Last Admin: 02/15/18 09:09 Dose: 81 mg Atorvastatin Calcium (Lipitor*) 80 mg PO DAILY [facility] Last Admin: 02/15/18 09:08 Dose: 80 mg Clopidogrel Bisulfate (Plavix Tab*) 75 mg PO DAILY [facility] Duloxetine HCl (Cymbalta Cap*) 60 mg PO DAILY [facility] Last Admin: 02/15/18 10:41 Dose: 60 mg Hydralazine HCl (Apresoline Iv*) 5 mg IV SLOW PU Q6H PRN PRN Reason: sbp>180 Last Admin: 02/14/18 16:27 Dose: 5 mg Levothyroxine Sodium (Synthroid Tab*) 50 mcg PO 0600 [facility] Last Admin: 02/15/18 05:12 Dose: Not Given Metoprolol Tartrate (Lopressor Tab*) 25 mg PO BID [facility] Last Admin: 02/15/18 09:08 Dose: 25 mg Mometasone Furoate/Formoterol Fumar (Dulera 200/5 Mdi*) 2 puff INH BID [facility]; Protocol Last Admin: 02/15/18 09:09 Dose: 2 puff Ondansetron HCl (Zofran Inj*) 4 mg IV Q4H PRN PRN Reason: NAUSEA/VOMITING Last Admin: 02/15/18 09:08 Dose: 4 mg Pantoprazole Sodium (Protonix Tab (Nf)) 40 mg PO DAILY [facility] Valsartan (Diovan Tab*) 320 mg PO DAILY [facility] Last Admin: 02/15/18 09:08 Dose: 320 mg Vital Signs - 8 hr 02/15/18 02/15/18 02/15/18 07:35 08:00 09:07 Temperature 98.0 F Pulse Rate 81 81 Respiratory 16 20 16 Rate Blood Pressure 152/73 (mmHg) O2 Sat by Pulse 95 95 95 Oximetry 02/15/18 11:29 Temperature 98.5 F Pulse Rate 67 Respiratory 16 Rate Blood Pressure 133/54 (mmHg) O2 Sat by Pulse 95 Oximetry Oxygen Devices in Use Now: None Appearance: awake, alert. oriented. no acute distress Eyes: No Scleral Icterus, PERRLA, - Ears/Nose/Mouth/Throat: NL Teeth, Lips, Gums, Clear Oropharnyx, Mucous Membranes Moist Neck: NL Appearance and Movements; NL JVP, Trachea Midline Respiratory: Symmetrical Chest Expansion and Respiratory Effort, Clear to Auscultation Cardiovascular: NL Sounds; No Murmurs; No JVD, RRR, No Edema Abdominal: NL Sounds; No Tenderness; No Distention Extremities: No Edema, No Clubbing, Cyanosis Skin: No Rash or Ulcers Neurological: Alert and Oriented x 3, NL Muscle Strength and Tone Result Diagrams: 02/15/18 05:32 02/15/18 05:32 Microbiology and Other Data: Microbiology 02/13/18 17:55 Nasal Screen MRSA (PCR) - Final Nasal Mrsa Not Detected EKG Data: Tele NSR Assess/Plan/Problems-Billing Assessment: 67y F with pmhx of Gastric ulcers and GIB 2014 (EGD 07/2014 with duodenal diverticula,diverticulosis, small hiatal hernia), HTN, Osteoarthritis, hypothyroidism (history of partial thyroidectomy), mild asthma, depression from previous loss of ; comes to ER with complaints of left facial numbness. She went to take a nap at ~1pm today. Woke at ~205 and went downstairs, complaints of left facial and left arm/leg numbness/tingling, noticeable slurred speech to herself, and some left lid droop. In ER, hyptertensive 170s, NSR. CT brain negative for acute pathology. Decision for tpa, given at 315pm. Noted history of uncontrolled/elevated BPs at home >200 for weeks, despite medications. - Patient Problems (1) CVA (cerebral vascular accident) Current Visit: Yes Status: Acute Code(s): I63.9 - CEREBRAL INFARCTION, UNSPECIFIED SNOMED Code(s): 545218076 Comment: - NIH score Zero today 02/15/18 - s/p CVA, s/p tpa 315pm 02/13. - minimal symptoms only of facial numbness on left. - MRI brain no acute infarct. - continue Blood pressure control, hydralazine prn, valsartan 320 mg po daily. lopressor 25 mg bid - Neurologoy consult appreicated. Will continue atorvastatin PO. already on asa [address] her on plavix today. - If remain stable will D/c home tomorrow. (2) Hypertension Current Visit: Yes Status: Acute Code(s): I10 - ESSENTIAL (PRIMARY) HYPERTENSION SNOMED Code(s): 06445428 Comment: - continue Blood pressure control, hydralazine prn, valsartan 320 mg po daily. lopressor 25 mg bid (3) Asthma Current Visit: No Status: Acute Code(s): J45.909 - UNSPECIFIED ASTHMA, UNCOMPLICATED SNOMED Code(s): 566233506 Comment: - on Dulera (4) Depression Current Visit: No Status: Acute Code(s): F32.9 - MAJOR DEPRESSIVE DISORDER, SINGLE EPISODE, UNSPECIFIED SNOMED Code(s): 76070333 Comment: - on cymbalta (5) GERD (gastroesophageal reflux disease) Current Visit: No Status: Acute Code(s): K21.9 - GASTRO-ESOPHAGEAL REFLUX DISEASE WITHOUT ESOPHAGITIS SNOMED Code(s): 867930653 Comment: resume home pantoprazole and ranitidine (6) Hypothyroidism Current Visit: No Status: Acute Code(s): E03.9 - HYPOTHYROIDISM, UNSPECIFIED SNOMED Code(s): 51060441 Comment: on levoxyl 50 mcg daily (7) DVT prophylaxis Current Visit: Yes Status: Acute Code(s): JNU9732 - SNOMED Code(s): 917734710 Comment: - ambulate, and SCD
[2018-02-16 05:22] LABS: ABS Basophils 0 10^3/ul (0-0.2); ABS Eosinophils 0.1 10^3/ul (0-0.6); ABS Monocytes 0.6 10^3/ul (0-0.8); ABS Neutrophils 3.6 10^3/ul (1.5-7.7); ABS Nucleated RBC 0 10^3/ul; Eosinophil % 1.6 % (0-6); Hematocrit 39 % (35-47); Hemoglobin 12.8 g/dl (12.0-16.0); Lymphocyte % 31.1 % (25-47); Mean Corpuscular HGB Conc 33 g/dl (31-36); Mean Corpuscular Hemoglobin 30 pg (27-31); Mean Corpuscular Volume 91 fL (80-97); Mean Platelet Volume 7.5 fL (7.4-10.4); Nucleated Red Blood Cells % 0; Platelet Count 275 10^3/ul (150-450); Red Blood Count 4.23 10^6/ul (4.00-5.40); Red Cell Distribution Width 14 % (10.5-15); White Blood Count 6.3 10^3/ul (3.5-10.8)
[2018-02-16] MEDS: Levothyroxine TAB* 50 MCG TAB PO SCH (05:23)
[2018-02-16] MEDS: Atorvastatin* 80 MG TAB PO SCH (07:33)
[2018-02-16] MEDS: Clopidogrel TAB* 75 MG PO SCH (07:33)
[2018-02-16] MEDS: DULoxetine DR CAP* 60 MG CAP.DR PO SCH (07:34)
[2018-02-16] MEDS: Aspirin EC TAB* 81 MG TAB.EC PO SCH (07:34)
[2018-02-16] MEDS: Metoprolol Tartrate TAB* 25 MG PO SCH (07:34)
[2018-02-16] MEDS: Valsartan TAB* 160 MG PO SCH (07:34)
[2018-02-16] MEDS: Mometasone/Formoter 200/5 MDI INH SCH (08:06)
[2018-02-16] MEDS ORDERED: CMCS Pantoprazole TAB (NF) 40 MG TAB PO SCH (09:00)
--- NOTE | 2018-02-16 11:12 | PN ---
Subjective Date of Service: 02/16/18 Interval History: Patient seen this morning, she slept very well. no events overnight. Took her plavix. No adverse event. Labs noted and stable H/H. She denies any nausea or vomit. No fever or chills. no altered mental status. ambulating and taking po well Past Medical History: Unchanged from Admission Objective Active Medications: Acetaminophen (Tylenol Tab*) 650 mg PO Q4H PRN PRN Reason: HEADACHE Last Admin: 02/15/18 15:13 Dose: 650 mg Aspirin (Aspirin Ec Tab*) 81 mg PO DAILY [facility] Last Admin: 02/16/18 07:34 Dose: 81 mg Atorvastatin Calcium (Lipitor*) 80 mg PO DAILY [facility] Last Admin: 02/16/18 07:33 Dose: 80 mg Clopidogrel Bisulfate (Plavix Tab*) 75 mg PO DAILY [facility] Last Admin: 02/16/18 07:33 Dose: 75 mg Duloxetine HCl (Cymbalta Cap*) 60 mg PO DAILY [facility] Last Admin: 02/16/18 07:34 Dose: 60 mg Hydralazine HCl (Apresoline Iv*) 5 mg IV SLOW PU Q6H PRN PRN Reason: sbp>180 Last Admin: 02/14/18 16:27 Dose: 5 mg Levothyroxine Sodium (Synthroid Tab*) 50 mcg PO 0600 [facility] Last Admin: 02/16/18 05:23 Dose: 50 mcg Metoprolol Tartrate (Lopressor Tab*) 25 mg PO BID [facility] Last Admin: 02/16/18 07:34 Dose: 25 mg Mometasone Furoate/Formoterol Fumar (Dulera 200/5 Mdi*) 2 puff INH BID [facility]; Protocol Last Admin: 02/16/18 08:06 Dose: 2 puff Ondansetron HCl (Zofran Inj*) 4 mg IV Q4H PRN PRN Reason: NAUSEA/VOMITING Last Admin: 02/15/18 09:08 Dose: 4 mg Pantoprazole Sodium (Protonix Tab (Nf)) 40 mg PO DAILY [facility] Last Admin: 02/16/18 07:34 Dose: 40 mg Valsartan (Diovan Tab*) 320 mg PO DAILY [facility] Last Admin: 02/16/18 07:34 Dose: 320 mg Vital Signs - 8 hr 02/16/18 02/16/18 02/16/18 04:18 07:28 07:38 Temperature 98.9 F 97.8 F Pulse Rate 72 72 Respiratory 14 18 Rate Blood Pressure 137/53 150/78 (mmHg) O2 Sat by Pulse 93 94 Oximetry 02/16/18 02/16/18 08:06 09:40 Temperature Pulse Rate 74 Respiratory 16 16 Rate Blood Pressure (mmHg) O2 Sat by Pulse 98 98 Oximetry Oxygen Devices in Use Now: None Appearance: awake, alert. oriented. no acute distress Eyes: No Scleral Icterus, PERRLA Ears/Nose/Mouth/Throat: NL Teeth, Lips, Gums, Clear Oropharnyx Neck: NL Appearance and Movements; NL JVP, Trachea Midline Respiratory: Symmetrical Chest Expansion and Respiratory Effort, Clear to Auscultation Cardiovascular: NL Sounds; No Murmurs; No JVD, RRR, No Edema Abdominal: NL Sounds; No Tenderness; No Distention Extremities: No Edema Skin: No Rash or Ulcers Neurological: Alert and Oriented x 3, NL Sensation, NL Gait, NL Muscle Strength and Tone Result Diagrams: 02/16/18 04:57 02/15/18 05:32 Microbiology and Other Data: Microbiology 02/13/18 17:55 Nasal Screen MRSA (PCR) - Final Nasal Mrsa Not Detected EKG Data: Tele NSR Assess/Plan/Problems-Billing Assessment: 67y F with pmhx of Gastric ulcers and GIB 2014 (EGD 07/2014 with duodenal diverticula,diverticulosis, small hiatal hernia), HTN, Osteoarthritis, hypothyroidism (history of partial thyroidectomy), mild asthma, depression from previous loss of ; comes to ER with complaints of left facial numbness. She went to take a nap at ~1pm today. Woke at ~205 and went downstairs, complaints of left facial and left arm/leg numbness/tingling, noticeable slurred speech to herself, and some left lid droop. In ER, hyptertensive 170s, NSR. CT brain negative for acute pathology. Decision for tpa, given at 315pm. Noted history of uncontrolled/elevated BPs at home >200 for weeks, despite medications. - Patient Problems (1) CVA (cerebral vascular accident) Current Visit: Yes Status: Acute Code(s): I63.9 - CEREBRAL INFARCTION, UNSPECIFIED SNOMED Code(s): 504980575 Comment: - NIH score Zero 02/25/18 - s/p CVA, s/p tpa 315pm 02/13. - symptoms resolved - MRI brain no acute infarct. - continue Blood pressure control, hydralazine prn, valsartan 320 mg po daily. lopressor 25 mg bid D/C home today - Neurologoy consult appreicated. Will continue atorvastatin PO. already on asa [address] her on plavix today. - Iwill D/c home today (2) Hypertension Current Visit: Yes Status: Acute Code(s): I10 - ESSENTIAL (PRIMARY) HYPERTENSION SNOMED Code(s): 68550860 Comment: - continue Blood pressure control, hydralazine prn, valsartan 320 mg po daily. lopressor 25 mg bid (3) Asthma Current Visit: No Status: Acute Code(s): J45.909 - UNSPECIFIED ASTHMA, UNCOMPLICATED SNOMED Code(s): 496341371 Comment: - on Dulera (4) Depression Current Visit: No Status: Acute Code(s): F32.9 - MAJOR DEPRESSIVE DISORDER, SINGLE EPISODE, UNSPECIFIED SNOMED Code(s): 36327813 Comment: - on cymbalta (5) GERD (gastroesophageal reflux disease) Current Visit: No Status: Acute Code(s): K21.9 - GASTRO-ESOPHAGEAL REFLUX DISEASE WITHOUT ESOPHAGITIS SNOMED Code(s): 837228322 Comment: resumed home pantoprazole and ranitidine (6) Hypothyroidism Current Visit: No Status: Acute Code(s): E03.9 - HYPOTHYROIDISM, UNSPECIFIED SNOMED Code(s): 89184819 Comment: on levoxyl 50 mcg daily (7) DVT prophylaxis Current Visit: Yes Status: Acute Code(s): BZJ3766 - SNOMED Code(s): 251396718 Comment: - ambulate, and SCD
[2018-02-16 12:38] VITALS: BP 138/61
--- NOTE | 2018-02-17 06:15 | DS ---
DISCHARGE SUMMARY: DATE OF ADMISSION: 02/13/18 DATE OF DISCHARGE: 02/16/18 FINAL DISCHARGE DIAGNOSES: 1. Cerebrovascular accident/transient ischemic attack. 2. Hypertension. 3. Asthma. 4. Depression. 5. Gastroesophageal reflux disease 6. Hypothyroidism. HOSPITAL COURSE: The patient was admitted on 02/13/18 via the emergency room after she presented wit h fairly sudden onset of left facial numbness shortly after she woke up from her nap and was complain ing of left facial numbness, arm and leg tingling with noticeable slurred speech to herself and left lid droop. She had no headache on presentation or nausea, vomiting, dizziness or syncopal. She was evaluated in the emergency room. Blood pressure was 140, stroke protocol was initiated. CT of the b rain was done, it did not reveal any hemorrhage and her initial NIH score was 3. Neurology was boyer d and recommended to proceed with tPA and was given around 3:15 p.m., which was about 2 hours 15 emilia jack from symptoms onset. The patient, therefore, was admitted to the ICU post tPA treatment for very close observation post tPA. She did improve on the following day and MRI of the brain in the follow ing morning was obtained and did not reveal and did not reveal any evidence of acute infarct. In the following morning she was assessed by the amr physician Dr. Salcido and her blood pressure was in the ran ge 160 to 170, initiated metoprolol 25 mg twice a day and initiated aspirin 81 mg 24 hours after tPA and was pleased to be transferred to tele. I did see evaluate the patient the day after on 02/15/18. She was asymptomatic. She was present with her in the room. Denies any numbness, tingling, she had some minimal left eye droop, but she personally states has improved from presentation and wa s eager for discharge. I was able to convince her to remain this evening as I wanted to implement th e recommendation of initiating Plavix and we assess her on the following day. Reluctantly she agreed and Plavix was given on 02/15/18 in combination with aspirin and I re-assessed her today 02/16/18 sage or to discharge and please refer to my full progress note earlier done today in her chart. She had n o residual, no pain, offers no distress. Her H and H is stable and ambulating, tolerating p.o., requ ires minimal to no assistance. Her NIH score performed on 02/15/18 was 0. Therefore, I saw and evalu ated the patient and I deemed her stable for discharge. INPATIENT DIAGNOSTIC STUDY: CT of the brain done 02/13/18 at 2:56 p.m. reveals no intracranial bleed or hemorrhage. CT of the head at 02/13/18 at 3:20 p.m. revealed no evidence of hemodynamically significant carotid s tenosis. No evidence of large vessel intracranial thrombus that was in the CTA of the head and he ne ck. Echocardiogram 02/13/18 at 4:52 p.m. revealed ejection fraction 55% to 60%, normal cardiac chamb er size, mild aortic regurgitation. Brain MRI 02/14/18 chronic ischemic white matter disease. No intracranial mass or hemorrhage is note d. INPATIENT CONSULTATION: Neurology, Dr. Vazquez Shore, recommended antiplatelet therapy for 1 month a nd only continue aspirin afterward. Chief Security And Safety Officer, Dr. Korey Salcido. DISCHARGE MEDICATIONS: 1. Aspirin 81 mg daily. 2. Lipitor 80 mg at bedtime. 3. Plavix 75 daily for 1 month then discontinue, to be maintained on baby aspirin alone. 4. Metoprolol 25 mg b.i.d. 5. Dulera 2 puffs twice a day. Continue home medication as follows: 1. Ambien 10 mg at night. 2. Valsartan/hydrochlorothiazide 160/12.5 once a day. 3. Duloxetine 60 mg daily. 4. Levothyroxine 50 mcg daily. 5. Pantoprazole 40 mg daily. 6. Ranitidine 150 daily. 7. Boniva 150 monthly. 8. Simvastatin was discontinued as I placed her on Lipitor. DISCHARGE INSTRUCTION: The patient to follow up with her primary care provider in 1 to 2 weeks. To follow up with neurology Dr. Shore within 1 month. The patient is to take all medication as pre scribed. I did provide the patient with outpatient requisition for blood work to do within 2 weeks prior to he r PCP appointment, CBC, LFT, and metabolics giving her medication changes and the high dose statin. The patient to adhere to a healthy cardiac diet, take all medication as prescribed. If she develops a ny chest pain, worsening symptoms, weakness, numbness, sign of TIA or stroke to report to the emergen cy room immediately. [id number]/[facility] #: [id number]
== END 2018-02-16 12:20 | disposition home or self-care (01) | DRG 63 ==
LOC: ED 14:44 → ICU 16:39 → MEDTELE 02-14 17:06
PROVIDERS: ADMIT Internal Medicine Critical Care Medicine; ATTEND Internal Medicine
DX: I63.9 Cerebral infarction, unspecified (principal); I10 Essential (primary) hypertension; J45.909 Unspecified asthma, uncomplicated; F32.9 Major depressive disorder, single episode, unspecified; K21.9 Gastro-esophageal reflux disease without esophagitis; E03.9 Hypothyroidism, unspecified; R40.2362 Coma scale, best motor response, obeys commands, at arrival to emergency department; R40.2142 Coma scale, eyes open, spontaneous, at arrival to emergency department; R40.2252 Coma scale, best verbal response, oriented, at arrival to emergency department; R29.703 NIHSS score 3; K57.90 Diverticulosis of intestine, part unspecified, without perforation or abscess without bleeding; K44.9 Diaphragmatic hernia without obstruction or gangrene; M19.90 Unspecified osteoarthritis, unspecified site; E78.5 Hyperlipidemia, unspecified; R51 Headache; I35.1 Nonrheumatic aortic (valve) insufficiency; Z79.82 Long term (current) use of aspirin; Z72.89 Other problems related to lifestyle; Z79.02 Long term (current) use of antithrombotics/antiplatelets; K57.10 Diverticulosis of small intestine without perforation or abscess without bleeding; Z83.79 Family history of other diseases of the digestive system
CPT/HCPCS: 36415; 70450; 70496; 70498; 70551; 71045; 80048; 80053; 80061; 81003; 83036; 83605; 84439; 84443; 84484; 85025; 85027; 85610; 85730; 86850; 86900; 86901; 87641; 93005; 93306; 94640; 99284; A9270-GY; C8929; G8978-GP-CH; G8979-GP-CH; G8980-GP-CH; G8987-GO-CI; G8988-GO-CI; G8989-GO-CI; J0360; J2405; J2765; J2997; Q9967

== ENCOUNTER 2018-09-09 06:56 | Day surgery (SDC) | payer MEDICARE ==
[2018-09-09] MEDS ORDERED: Midazolam* 1 MG/ML 2 ML VIAL (2 MG) ONE ×2 (08:10→08:29)
[2018-09-09 08:57] VITALS: BP 177/56
[2018-09-09] MEDS ORDERED: Povidone Iodine 5% OPTH* 30 ML BTL ONE (11:12)
[2018-09-09] MEDS ORDERED: Tetracaine 0.5% OPTH.SOL 4 ML* 1 DROP BTL ONE (11:12)
[2018-09-09] MEDS ORDERED: Phenylephrine OPHTH SOL 2.5%* 2 ML ONE (11:12)
[2018-09-09] MEDS ORDERED: Lidocaine 1%* 5 ML VIAL ONE (11:12)
[2018-09-09] MEDS ORDERED: Cyclopentolate 1% OPTH.SOL* 2 ML BTL ONE (11:12)
[2018-09-09] MEDS ORDERED: acetaZOLAMIDE TAB* 250 MG ONE (11:12)
[2018-09-09] MEDS ORDERED: Neomycin/Polymy/Dex OPHTH.OIN* 3.5 GM ONE (11:12)
[2018-09-09] MEDS ORDERED: Ketorolac 0.5% OPHTH (NF) 0.5 % 5 ML BTL ONE (11:12)
[2018-09-09] MEDS ORDERED: Tropicamide 1% OPTH.SOL* BTL ONE (11:12)
--- NOTE | 2018-09-09 20:28 | OP ---
DATE OF OPERATION: 09/09/18 [facility] DATE OF : 46 SURGEON: Andrew Mac MD ANESTHESIA: Monitored anesthesia care. PRE-OP DIAGNOSIS: Cataract, left eye. POST-OP DIAGNOSIS: Cataract, left eye. OPERATIVE PROCEDURE: Extracapsular cataract extraction of the left eye with intraocular lens implant. IMPLANT: SN6AT5 24.0 diopter lens to the left eye. COMPLICATIONS: None. DESCRIPTION OF PROCEDURE: The patient was given phenylephrine 2.5 % and cyclopentolate 1% eye drops to the operative eye in the preoperative area. The patient was taken to the operating room where a time-out was taken to identify the correct patient, site, and side of surgery. The patient's left eye was prepped and draped in the usual sterile fashion with 5% Betadine. A second time -out was taken to verify the correct patient, side, site of surgery, and correct lens implant. A lid speculum was placed to the left eye. A 1-mm paracentesis blade was used to make a clear corneal incision in the inferotemporal position. Preservative-free 1% lidocaine was injected into the anterior chamber. DisCoVisc was then injected into the anterior chamber. A 2.75 -mm keratome blade was used to make a triplanar incision at the superotemporal position. A cystotome initiated a capsulorrhexis, which was completed with Utrata forceps in a continuous and curvilinear manner. Hydrodissection of the lens was performed with BSS on a cannula. The lens could be spun in a capsular bag. The phacoemulsification handpiece was used with a divide- and-conquer technique to remove the nucleus. The I/A handpiece then removed the residual cortical lens material. Provisc was then injected to inflate the capsular bag. The ORA system was then used to help confirm the correct lens selection. The ORA system could not get adequate readings; therefore, the initially planned SN6AT5 24.0 diopter lens was injected into the capsular bag and rotated to the 28-degree meridian. The residual Provisc was then removed from the eye with the I/A handpiece. The corneal incisions were hydrated and no leaks occurred at physiologic pressure around 20 mmHg per palpation. The lid speculum was removed and drapes were removed. The patient was taken to the postoperative area in stable condition. [id number]/[facility] #: [id number] [facility] CENTERGarcía
== END 2018-09-09 09:10 | disposition home or self-care (01) ==
LOC: OREAST 06:56
PROVIDERS: ATTEND Student in an Organized Health Care Education/Training Program
DX: H25.812 Combined forms of age-related cataract, left eye (principal); I10 Essential (primary) hypertension; J45.909 Unspecified asthma, uncomplicated; K21.9 Gastro-esophageal reflux disease without esophagitis; G47.33 Obstructive sleep apnea (adult) (pediatric); Z86.73 Personal history of transient ischemic attack (TIA), and cerebral infarction without residual deficits; E78.00 Pure hypercholesterolemia, unspecified; M19.90 Unspecified osteoarthritis, unspecified site
CPT/HCPCS: A9270-GY; J2250; V2632

== ENCOUNTER 2018-09-16 07:40 | Day surgery (SDC) | payer MEDICARE ==
[2018-09-16] MEDS ORDERED: Midazolam* 1 MG/ML 2 ML VIAL (2 MG) ONE ×2 (08:19→09:24)
[2018-09-16] MEDS ORDERED: Cyclopentolate 1% OPTH.SOL* 2 ML BTL ONE (08:32)
[2018-09-16] MEDS ORDERED: Povidone Iodine 5% OPTH* 30 ML BTL ONE (08:32)
[2018-09-16] MEDS ORDERED: acetaZOLAMIDE TAB* 250 MG ONE (08:32)
[2018-09-16] MEDS ORDERED: Tropicamide 1% OPTH.SOL* BTL ONE (08:32)
[2018-09-16] MEDS ORDERED: Tetracaine 0.5% OPTH.SOL 4 ML* 1 DROP BTL ONE (08:32)
[2018-09-16] MEDS ORDERED: Ketorolac 0.5% OPHTH (NF) 0.5 % 5 ML BTL ONE (08:32)
[2018-09-16] MEDS ORDERED: Lidocaine 1%* 5 ML VIAL ONE (08:32)
[2018-09-16] MEDS ORDERED: Phenylephrine OPHTH SOL 2.5%* 2 ML ONE (08:32)
[2018-09-16] MEDS ORDERED: Neomycin/Polymy/Dex OPHTH.OIN* 3.5 GM ONE (08:32)
[2018-09-16 10:01] VITALS: BP 147/71
--- NOTE | 2018-09-16 11:11 | OP ---
DATE OF OPERATION: 09/16/18 - [facility] DATE OF : 46 SURGEON: Andrew Mac MD. ANESTHESIA: Monitored anesthesia care. PREOPERATIVE DIAGNOSIS: Cataract, right eye. POSTOPERATIVE DIAGNOSIS: Cataract, right eye. OPERATIVE PROCEDURE: Extracapsular cataract extraction of the right eye with intraocular lens implant. IMPLANT: SN60WF 25.0 diopter lens to the right eye. COMPLICATIONS: None. DESCRIPTION OF PROCEDURE: The patient was given phenylephrine 2.5% and cyclopentolate 1% eye drops to the operative eye in the preoperative area. The patient was taken to the operating room where a time-out was taken to identify the correct patient, site, and side of surgery. The patient's right eye was prepped and draped in the usual sterile fashion with 5% Betadine. A second time -out was taken to verify the correct patient, side, and site of surgery, as well as the correct lens implant. A lid speculum was placed to the right eye. A 1mm paracentesis blade was used to make a clear corneal incision. Preservative-free 1% lidocaine was injected into the anterior chamber. DisCoVisc was then injected into the anterior chamber. A 2.75 mm keratome blade was used to make a triplanar incision. A cystotome initiated a capsulorrhexis, which was completed with Utrata forceps in a continuous and curvilinear manner. Hydrodissection of the lens was performed with BSS on a cannula. The lens could be spun in a capsular bag. The phacoemulsification handpiece was used with a [id number] technique to remove the nucleus. The I/A handpiece then removed the residual cortical lens material. DisCoVisc was injected to inflate the capsular bag. The planned SN60WF 25.0 diopter lens was injected into the capsular bag. The residual DisCoVisc was removed from the eye with the I/A handpiece. The corneal incisions were hydrated and no leaks occurred at physiologic pressure around 20 mmHg per palpation. The lid speculum was removed and drapes were removed. Maxitrol ointment was placed to the surface of the operative eye. An adhesive patch and shield was then placed on the operative eye. The patient was taken to the postoperative area in stable condition. [id number]/[facility] #: [id number] [facility]
== END 2018-09-16 09:54 | disposition home or self-care (01) ==
LOC: OREAST 07:40
PROVIDERS: ATTEND Student in an Organized Health Care Education/Training Program
DX: H25.811 Combined forms of age-related cataract, right eye (principal); I10 Essential (primary) hypertension; J45.909 Unspecified asthma, uncomplicated; Z86.73 Personal history of transient ischemic attack (TIA), and cerebral infarction without residual deficits; E78.00 Pure hypercholesterolemia, unspecified; K21.9 Gastro-esophageal reflux disease without esophagitis; E03.9 Hypothyroidism, unspecified; M81.0 Age-related osteoporosis without current pathological fracture; F32.9 Major depressive disorder, single episode, unspecified
CPT/HCPCS: A9270-GY; J2250; V2632

== ENCOUNTER 2020-09-02 12:09 | Inpatient (IN) ==
[2020-09-02] MEDS ORDERED: hydrALAZINE 20 mg/ml 1 ML Vial IV IV SLOW PU ONE (13:41)
[2020-09-02 15:13] LABS: ABS Eosinophils 0.2 10^3/ul (0-0.6); ABS Lymphocytes 1.1 10^3/ul (1.0-4.8); ABS Monocytes 0.8 10^3/ul (0-0.8); ABS Neutrophils 2.8 10^3/ul (1.5-7.7); Eosinophil % 3.1 %; Hematocrit 41 % (35-47); Hemoglobin 13.9 g/dL (12.0-16.0); Lymphocyte % 22.8 %; Mean Corpuscular HGB Conc 34 g/dL (31-36); Mean Corpuscular Hemoglobin 31 pg (27-31); Mean Corpuscular Volume 92 fL (80-97); Mean Platelet Volume 7.7 fL (7.4-10.4); Platelet Count 261 10^3/uL (150-450); Red Blood Count 4.45 10^6 /uL (3.70-4.87); Red Cell Distribution Width 14 % (10-15); White Blood Count 4.9 10^3/uL (3.5-10.8)
[2020-09-02 15:31] LABS: Troponin I 0.01 ng/mL (<0.03)
[2020-09-02 15:33] LABS: Albumin 3.8 g/dL (3.2-5.2); Albumin/Globulin Ratio 1.4 (1-3); EGFR African American 89.2 (>60); EGFR Non-African American 73.7 (>60); Globulin 2.7 g/dL (2-4); Total Bilirubin 0.4 mg/dL (0.2-1.0); Total Protein 6.5 g/dL (6.4-8.9)
[2020-09-02] MEDS ORDERED: Labetalol IV 5 MG/ML 20 ml VIAL IV PUSH ONE (17:12)
[2020-09-02] MEDS ORDERED: Losartan/HCTZ 100/25 TAB (NF) PO ONE (17:14)
[2020-09-02] MEDS ORDERED: niCARdipine 0.1MG/ML IVPREMIX 20 MG/200 ML BAG IV SCH ×2 (18:30→20:06)
[2020-09-02] MEDS ORDERED: Ondansetron 4 mg VIAL 2 MG/ML 2 ml VIAL IV ONE (19:34)
[2020-09-02] MEDS ORDERED: Albuterol/Ipratropium NEB.SOL (2.5/0.5 MG) 3 ML NEB.SOLN INH PRN (19:35)
[2020-09-02 19:43] LABS: TSH Ultra Thyroid Stim Horm 3.77 mcIU/mL (0.34-5.60)
[2020-09-02] MEDS ORDERED: Iohexol 350 (CONTRAST) 500 ML MDV IV ONE (19:52)
[2020-09-02] MEDS: Mometasone/Formoter 200/5 MDI INH SCH (20:20)
[2020-09-02] MEDS ORDERED: Metoclopramide 5 MG/ML VIAL (10 mg) IV PRN (21:30)
[2020-09-02] MEDS ORDERED: Heparin 5000 UNITS/ML 1 mL VIAL SUBCUT SCH (22:00)
[2020-09-02] MEDS: Lactated Ringers 1000 ml BAG 1,000 ML IV ONE (22:20)
[2020-09-03] MEDS ORDERED: Iohexol 350 (CONTRAST) 500 ML MDV IV ONE (01:58)
[2020-09-03 03:14] LABS: Urine Appearance Cloudy; Urine Bilirubin Negative (Negative); Urine Blood Negative (Negative); Urine Color Yellow; Urine Glucose Negative (Negative); Urine Ketones Negative (Negative); Urine Nitrite Negative (Negative); Urine Protein Negative (Negative); Urine Specific Gravity 1.016 (1.002-1.030); Urine Urobilinogen Negative (Negative)
[2020-09-03] MEDS: Lactated Ringers 1000 ml BAG 1,000 ML IV ONE (04:40)
[2020-09-03 04:48] LABS: ABS Lymphocytes 0.7 10^3/ul (1.0-4.8); ABS Monocytes 0.6 10^3/ul (0-0.8); ABS Neutrophils 5.7 10^3/ul (1.5-7.7); Eosinophil % 0.1 %; Hematocrit 40 % (35-47); Hemoglobin 14.1 g/dL (12.0-16.0); Lymphocyte % 10.5 %; Mean Corpuscular HGB Conc 35 g/dL (31-36); Mean Corpuscular Hemoglobin 32 pg (27-31); Mean Corpuscular Volume 91 fL (80-97); Mean Platelet Volume 7.8 fL (7.4-10.4); Platelet Count 267 10^3/uL (150-450); Red Blood Count 4.45 10^6 /uL (3.70-4.87); Red Cell Distribution Width 14 % (10-15)
[2020-09-03 05:17] LABS: Calcium 8.4 mg/dL (8.6-10.3); Potassium 3.8 mmol/L (3.5-5.0)
[2020-09-03 05:23] LABS: EGFR African American 102.9 (>60); EGFR Non-African American 85.1 (>60)
[2020-09-03] MEDS ORDERED: Potassium Chlor 20 meq TAB.ER PO ONE (07:11)
[2020-09-03] MEDS: Mometasone/Formoter 200/5 MDI INH SCH ×2 (07:49→19:57)
[2020-09-03] MEDS ORDERED: Labetalol IV 5 MG/ML 20 ml VIAL IV PUSH PRN (13:41)
[2020-09-03] MEDS: Nystatin TOP POWDER 15 GM BTL TOPICAL SCH ×2 (14:01→21:39)
[2020-09-03 15:07] LABS: C Reactive Protein 11.67 mg/L (<8.01)
[2020-09-03 16:40] LABS: Erythrocyte Sed Rate 10 mm/Hr (0-29)
[2020-09-03] MEDS: Heparin 5000 UNITS/ML 1 mL VIAL SUBCUT SCH (21:39)
[2020-09-04] MEDS: Heparin 5000 UNITS/ML 1 mL VIAL SUBCUT SCH (05:33)
[2020-09-04 07:42] LABS: ABS Eosinophils 0.1 10^3/ul (0-0.6); ABS Lymphocytes 1.2 10^3/ul (1.0-4.8); ABS Monocytes 0.4 10^3/ul (0-0.8); ABS Neutrophils 2.9 10^3/ul (1.5-7.7); Eosinophil % 2.7 %; Hematocrit 41 % (35-47); Hemoglobin 13.8 g/dL (12.0-16.0); Lymphocyte % 25.8 %; Mean Corpuscular HGB Conc 34 g/dL (31-36); Mean Corpuscular Hemoglobin 31 pg (27-31); Mean Corpuscular Volume 92 fL (80-97); Mean Platelet Volume 7.6 fL (7.4-10.4); Platelet Count 287 10^3/uL (150-450); Red Blood Count 4.46 10^6 /uL (3.70-4.87); Red Cell Distribution Width 14 % (10-15); White Blood Count 4.8 10^3/uL (3.5-10.8)
[2020-09-04] MEDS: Mometasone/Formoter 200/5 MDI INH SCH (07:43)
[2020-09-04 08:24] LABS: Calcium 9.2 mg/dL (8.6-10.3); EGFR Non-African American 57.8 (>60); Magnesium 2.1 mg/dL (1.9-2.7); Phosphorus 3.8 mg/dL (2.5-5.0); Potassium 4.3 mmol/L (3.5-5.0)
[2020-09-04] MEDS: Nystatin TOP POWDER 15 GM BTL TOPICAL SCH (10:31)
[2020-09-04 12:08] VITALS: BP 135/47
== END 2020-09-04 12:50 | disposition home or self-care (01) ==
LOC: ED 12:09 → ICU 19:30 → MEDTELE 09-03 17:08
PROVIDERS: ADMIT Internal Medicine; ATTEND Internal Medicine

== ENCOUNTER 2023-09-17 10:22 | Observation (INO) ==
[~2023-09-17 10:22] MED LIST: HYDROmorphone 1 MG/1 ML SYRINGE IV SLOW PU PRN; Naloxone 0.4 mg VIAL 0.4 mg/ml 1 ml VIAL IV PRN; Ondansetron 4 mg VIAL 2 MG/ML 2 ml VIAL IV PRN
[2023-09-17] MEDS ORDERED: Propofol 10 MG/ML 20 ML BTL ONE (10:32)
[2023-09-17] MEDS ORDERED: Phenylephrine 40 mcg/mL 10mL (400mcg) SYRINGE ONE (10:32)
[2023-09-17] MEDS ORDERED: Midazolam 2 mg/2 ml VIAL 1 mg/ml 2 ml VIAL (2 mg) ONE (10:32)
[2023-09-17] MEDS ORDERED: Lidocaine 2% PF 5 ML VIAL ONE (10:32)
[2023-09-17] MEDS ORDERED: Rocuronium 50 mg VIAL 10 mg/ml 5 ml VIAL (50 mg) ONE (10:33)
[2023-09-17] MEDS ORDERED: fentaNYL 250 mcg/5 ml 50 MCG/ML 5 ml VIAL (250 MCG) ONE (10:33)
[2023-09-17] MEDS ORDERED: Chlorhexidine MOUTHWASH 0.12% 15 ML UDC ONE (10:51)
[2023-09-17 11:25] LABS: Rapid COVID-19 Molecular Undetected (Undetected)
[2023-09-17] MEDS: Lactated Ringers 1000 ml BAG 1,000 ML IV SCH ×2 (11:30→15:40)
[2023-09-17] MEDS ORDERED: Gelfoam Sponge SIZE 100 SPONGE ONE (11:42)
[2023-09-17] MEDS ORDERED: Thrombin 5,000 UNITS(BOVINE) for Ultrasound Guided Pseudoaneursym ONE (11:42)
[2023-09-17] MEDS ORDERED: ceFAZolin VIAL VIAL ONE (11:42)
[2023-09-17] MEDS ORDERED: Lidocaine 1% w EPI 1:100,000 MDV 20 ML VIAL ONE (11:42)
[2023-09-17] MEDS ORDERED: ceFAZolin 2 GM PREMIX 2 GM/50 ML BAG ONE (11:43)
[2023-09-17] MEDS ORDERED: Dexamethasone IV 4 MG/ML VIAL 1 ml VIAL ONE (12:21)
[2023-09-17] MEDS ORDERED: Ondansetron 4 mg VIAL 2 MG/ML 2 ml VIAL ONE (12:21)
[2023-09-17] MEDS ORDERED: Glycopyrrolate IV 0.2 MG/ML 1 ML VIAL ONE (13:14)
[2023-09-17] MEDS ORDERED: Morphine 2 MG/ML SYRINGE IV PRN (14:02)
[2023-09-17] MEDS ORDERED: Senna TAB 8.6 mg TAB PO PRN (14:02)
[2023-09-17] MEDS ORDERED: Calcium Carb (TUMS) 500 mg CHEW TAB PO PRN (14:02)
[2023-09-17] MEDS ORDERED: Dextran 70/Hypromellose Tears Eye Drops 15 ml BTL (for Artificials Tears) BOTH EYES PRN (14:02)
[2023-09-17] MEDS ORDERED: Ondansetron 4 mg VIAL 2 MG/ML 2 ml VIAL IV PRN (14:02)
[2023-09-17] MEDS ORDERED: Benzocaine/Menthol LOZ MT PRN (14:02)
[2023-09-17] MEDS ORDERED: Phenol 1.4% Throat Spray BTL MT PRN (14:02)
[2023-09-17] MEDS ORDERED: HYDROcodone/ACETAMIN 5/325 mg TAB ONE (14:36)
[2023-09-17] MEDS: HYDROcodone/ACETAMIN 5/325 mg TAB PO PRN (14:40)
[2023-09-17] MEDS: Buffered Lidocaine 1% SYRIN 1 ml INTRADERM ONE (16:03)
[2023-09-17] MEDS: Mometasone/Formoter 100/5 MDI INH SCH (20:25)
[2023-09-18] MEDS: HYDROcodone/ACETAMIN 5/325 mg TAB PO PRN (02:07)
[2023-09-18] MEDS ORDERED: LOSARTAN HYDROCHLOROTHIAZIDE PO SCH (09:00)
[2023-09-18 10:25] VITALS: BP 114/60
== END 2023-09-18 12:00 | disposition home or self-care (01) ==
LOC: OR 10:22 → SSU 10:22
PROVIDERS: ADMIT Neurological Surgery; ATTEND Neurological Surgery